=== PATIENT | male | born 1995 | race Caucasian/White ===

== ENCOUNTER 2024-01-07 20:29 | Emergency (ER) | payer OTHER, SELFPAY ==
[2024-01-07 20:42] VITALS: BP 121/91; PULSE 63; RESP 18; TEMP 36.7; O2SAT 99; BMI 21.9
--- NOTE | 2024-01-07 20:47 | ED.SKABFB ---
HPI - Skin/Abscess/Foreign Bdy General Chief complaint: General Medical Stated complaint: rash on hip and back Time Seen by Provider: 01/07/24 22:46 Source: patient Mode of arrival: ambulatory Limitations: no limitations History of Present Illness ED Provider: zohra HPI narrative: Patient has been having rash in the left flank area since 11/29 had a tick bite in 11/01 which was not engorged and patient has removed it but he do hiking and lot of outdoor activities initially the rash was very small gradually spreading seen in the PCP who prescribed prednisone last week patient is concerned about the Lyme. No fever no body aches no other symptoms patient has a only single lesion Related Data Previous Rx's ?Medication ?Instructions ?Recorded doxycycline hyclate 100 mg tablet 100 mg PO BID #42 tabs 01/07/24 Allergies Allergy/AdvReac Type Severity Reaction Status Date / Time No Known Allergies Allergy Verified 01/07/24 20:46 Review of Systems Review of Systems: Yes all other systems are reviewed and are negative PMFSH Social History Social History Smoked in Last 30 Days: No Use of substances other than those prescribed or required for medical reasons: No Advance Directives: No Advance Directives Information Provided: No Do you have a plan to hurt others: No Plan Physical Exam Vital Signs: Vital Signs: Last Vital Signs Temp 97.6 F 01/07/24 22:52 Pulse 62 01/07/24 22:52 Resp 17 01/07/24 22:52 BP 129/96 H 01/07/24 22:52 Pulse Ox 98 01/07/24 22:52 O2 Del Method Room Air 01/07/24 22:52 BMI result Body Mass Index 21.9 Appearance: Alert. Oriented X3. No acute distress. ENT: Pharynx normal. Oral Mucosa moist Neck: Normal inspection. Neck supple. CVS: Normal heart rate and rhythm. Pulses normal. Respiratory: No respiratory distress. Equal air entry bilateral, Abdomen: Soft and nontender. Skin: Skin warm and dry. 15 x 15 cm circular lesion on the left flank area with erythema at the margin and clearing at the center Course Course Course Narrative: This is a Rapid Medical Examination (RME) performed by Esvin Stallings PA-C in triage. Full HPI, ROS, assessment and treatment plan per primary provider in the Main ED. 28 yo male here for eval of rash to left hip x1 mo. seen by PCP 1 wk ago, prescribed prednisone. rash has worsened, now spreading to left back. tonight he recalled that he picked a tick off of him on 11/30/23. the rash began on 12/12/23. has not been tested for lyme or tick bourne illness. denies fatigue, muscle aches. PE: ?large erythematous target-like rash noted to left flank. no pustular lesions. no sloughing. Plan: basic labs, tick/lyme testing Medical Decision Making Medical Decision Making [facility] Narrative: Patient clinically erythema marginum rash after tick bite in 10/28 will prescribe doxycycline for 21 days although indicated only for 10 days but because patient has a rash for so long will treat for 21 days Lab Data [facility] Lab Attestation statement: I reviewed the patient's lab results. 01/07/24 20:55 01/07/24 20:55 Labs: Lab Results 01/07/24 Range/Units 20:55 WBC 6.1 (4.8-10.8) X10*3/uL RBC 4.51 L (4.60-5.80) X10*6/uL Hgb 13.4 L (14.0-18.0) g/dl Hct 39.5 L (42.0-52.0) % MCV 87.6 (80.0-98.0) fL MCH 29.7 (27.0-33.0) pg MCHC 33.9 (31.0-36.0) g/dl RDW 13.0 (11.0-16.0) % Plt Count 186 (160-400) X10*3/uL MPV 9.8 (9.4-12.4) fL Immature Gran % (Auto) 0.2 (0.0-0.4) % Neut % (Auto) 61.7 (45-73) % Lymph % (Auto) 29.3 (20-40) % Stephenson % (Auto) 7.8 (2-11) % Eos % (Auto) 0.5 (0-4) % Baso % (Auto) 0.5 (0-2) % Lymph # (Auto) 1.8 (1.2-4.9) X10*3/uL Stephenson # (Auto) 0.5 (0.1-1.2) X10*3/uL Eos # (Auto) 0.0 (0.0-0.4) X10*3/uL Baso # (Auto) 0.0 (0.0-0.2) X10*3/uL Abs Immat Gran (auto) 0.01 (0.00-0.03) X10*3/uL Absolute Neuts (auto) 3.7 (2.0-8.3) x10*3/uL Absolute Nucleated RBC 0.000 (0.0-0.012) X10*3/uL Nucleated RBC % (auto) 0.0 (0.0-0.2) /100WBC Sodium 139 (135-145) mmol/L Potassium 3.9 (3.3-5.1) mmol/L Chloride 103 (96-108) mmol/L Carbon Dioxide 26 (22-29) mmol/L Anion Gap 14 (12-20) BUN 24 H (9-16) mg/dL Creatinine 1.19 (0.5-1.4) mg/dL Estim Creat Clear Calc 88.8 Estimated GFR > 60 Random Glucose 95 (60-115) mg/dL Calcium 9.7 (8.4-10.2) mg/dL Total Bilirubin 0.4 (0.0-1.0) mg/dL AST 18 (5-37) U/L ALT 12 (0-40) U/L Alkaline Phosphatase 60 (39-117) U/L Total Protein 7.5 (6.5-8.0) g/dL Albumin 4.5 (3.5-5.0) g/dL Discharge Plan Discharge Clinical Impression: Erythema chronicum migrans Patient Disposition: Home, Self-Care Instructions: Lyme Disease (ED) Additional Instructions: You have rash from the tick bite Take antibiotics as prescribed for 21 days Follow up with PCP Prescriptions: New doxycycline hyclate 100 mg tablet 100 mg PO BID Qty: 42 0RF Print Language: Serbian
[2024-01-07 21:00] LABS: MANUAL DIFF FLAG NO
[2024-01-07 21:01] LABS: Basophils Percent Auto 0.5 % (0-2); Eosinophils Percent Auto 0.5 % (0-4); Hematocrit 39.5 % (42.0-52.0); Hemoglobin 13.4 g/dl (14.0-18.0); Imm Gran Abs Auto 0.01 X10*3/uL (0.00-0.03); Imm Gran Pct Auto 0.2 % (0.0-0.4); Lymphocytes Absolute Auto 1.8 X10*3/uL (1.2-4.9); Lymphocytes Percent Auto 29.3 % (20-40); Mean Corpuscular HGB Conc 33.9 g/dl (31.0-36.0); Mean Corpuscular Hemoglobin 29.7 pg (27.0-33.0); Mean Corpuscular Volume 87.6 fL (80.0-98.0); Mean Platelet Volume 9.8 fL (9.4-12.4); Monocytes Absolute Auto 0.5 X10*3/uL (0.1-1.2); Monocytes Percent Auto 7.8 % (2-11); Neutrophils Absolute Auto 3.7 x10*3/uL (2.0-8.3); Neutrophils Percent Auto 61.7 % (45-73); Platelet Count 186 X10*3/uL (160-400); Red Blood Count 4.51 X10*6/uL (4.60-5.80); White Blood Count 6.1 X10*3/uL (4.8-10.8)
[2024-01-07 21:17] LABS: Alanine Aminotransferase 12 U/L (0-40); Albumin Level 4.5 g/dL (3.5-5.0); Alkaline Phosphatase 60 U/L (39-117); Anion Gap 14 (12-20); Aspartate Amino Transferase 18 U/L (5-37); Bilirubin Total 0.4 mg/dL (0.0-1.0); Blood Urea Nitrogen 24 mg/dL (9-16); Calcium 9.7 mg/dL (8.4-10.2); Carbon Dioxide 26 mmol/L (22-29); Chloride 103 mmol/L (96-108); Creatinine Clr Calc Pharmacy 88.8; Estimated Glomerular Filt Rate > 60; Glucose Random 95 mg/dL (60-115); Potassium 3.9 mmol/L (3.3-5.1); Sodium 139 mmol/L (135-145); Total Protein 7.5 g/dL (6.5-8.0)
--- NOTE | 2024-01-07 22:19 | PC.NURSE ---
pt from lobby, assume care of pt at this time
[2024-01-07 22:52] VITALS: BP 129/96; PULSE 62; RESP 17; TEMP 36.4; O2SAT 98
[2024-01-07] MEDS: Doxycycline Monohydrate 100 MG CAPSULE PO (23:14)
[2024-01-07 23:16] VITALS: BP 129/96; PULSE 62; RESP 17; TEMP 36.4; O2SAT 98
[2024-01-09 14:43] LABS: Lyme Blot 2.24 index
[2024-01-10 02:54] LABS: A. Phagocytphilium DNA,RT-PCR NOT DETECTED (NOT DETECTED); Babesia Microti DNA, RT-PCR NOT DETECTED (NOT DETECTED); Borrelia Miyamotoi,DNA RT-PCR NOT DETECTED (NOT DETECTED); E.Chaffeensis DNA RT-PCR NOT DETECTED (NOT DETECTED); Lyme(Borrelia ssp)DNA RT-PCR NOT DETECTED (NOT DETECTED)
[2024-01-10 10:51] LABS: Lyme Abs Screen POSITIVE
[2024-01-10 20:33] LABS: 18 KD (IgG) Band NON-REACTIVE; 23 KD (IgG) Band NON-REACTIVE; 23 KD (IgM) Band REACTIVE; 28 KD (IgG) Band NON-REACTIVE; 30 KD (IgG) Band NON-REACTIVE; 39 KD (IgM) Band REACTIVE; 39KD (IgG) Band NON-REACTIVE; 41 KD (IgM) Band NON-REACTIVE; 41KD (IgG) Band REACTIVE; 45 KD (IgG) Band NON-REACTIVE; 58 KD (IgG) Band NON-REACTIVE; 66 KD (IgG) Band NON-REACTIVE; 93 KD (IgG) Band NON-REACTIVE; Lyme IgG Blot Interp NEGATIVE (NEGATIVE); Lyme IgM Blot Interp POSITIVE (NEGATIVE)
== END 2024-01-07 23:17 | disposition home or self-care (01) ==
PROVIDERS: Physician Assistant Medical; Emergency Provider Internal Medicine; PCP Student in an Organized Health Care Education/Training Program
DX: A69.20 Lyme disease, unspecified (principal); R21 Rash and other nonspecific skin eruption
CPT/HCPCS: 36415; 80053; 85025; 86617; 86618; 87468; 87469; 87478; 87484; 87798; 99283; 99284

== ENCOUNTER 2024-11-27 07:22 | Outpatient (AMB) | payer OTHER, SELFPAY ==
--- OUTSIDE RECORDS SUMMARY | 2024-11-27 07:24 | XMS_ITS | Clinical Summary ---
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 Role Phone Unavailable Primary Care Provider Unavailabl e Social History Tobacco Use Types Packs/Day Years Used Date Smoking Tobacco: Never Assessed Sex and Gender Information Value Date Recorded Sex Assigned at Not on file Legal Sex Male 7:04 PM EST Gender Identity Not on file Sexual Orientation Not on file Plan of Treatment Health Maintenance Due Date Last Done Comments DTaP,Tdap,and Td Vaccines (1 - Tdap) 2012 Hepatitis B Vaccines (1 of 3 - 19+ 3-dose series) 2012 HIV Screening 04/08/2022 Hepatitis C Screening 04/08/2022 Social Influencers of Health Screening 04/08/2022 COVID-19 Vaccine (1 - 2023-2 5 season) 2024 Depression Screening 05/07/2024 Influenza Vaccine (#1) 2025 HIB Vaccines Aged Out No longer eligi ble based on patient's age to complete this topic HPV Vaccines Aged Out No longer eligi ble based on patient's age to complete this topic Hepatitis A Vaccines Aged Out No long er eligible based on patient's age to complete this topic IPV Vaccines Aged Out No longer eligi ble based on patient's age to complete this topic MMR Vaccines Aged Out No longer eligi ble based on patient's age to complete this topic Meningococcal ACWY Vaccine Aged Out N o longer eligible based on patient's age to complete this topic Meningococcal B Vaccine Aged Out No l onger eligible based on patient's age to complete this topic Pneumococcal Vaccine: Pediat rics (0 to 5 Years) and At-Risk Patients (6 to 49 Years) Aged Out No longer eligible b ased on patient's age to complete this topic RSV Immunization Patients Un charlie 20 months Aged Out No longer eligible b ased on patient's age to complete this topic Varicella Vaccines Aged Out No longer eligible based on patient's age to complete this topic
--- OUTSIDE RECORDS SUMMARY | 2024-11-27 07:24 | XMS_ITS | Data Portability ---
Author Organization [facility], Main Office Address [address] [facility] [address] [place] [id number] Care Team Providers Care Art Handler Name Role Phone CHRISTINE PARKS Primary Care Provider Assessment Encounter Date Assessment Date Assessment LastModified by Organization Details LastModified Time 08/15/2024 08/15/2024 Please note for complaints of possible gluten sensitivty patient was advised to see intergrated medicine. Declined testing specially for celiac disease as low likely-anthony of this. Not available 08/15/2024 09:09:59 Plan of Treatment Reminders Order Date Submit Date Provider Last Modified By Organization Details Last Modified Time Details Appointments None recorded. Lab lipid panel, serum 2024 025 [facility], [address] [place], [address], 5 06:17:59 strep group A, DNA, swab 2023 024 [email or web address] In-Office Order, Internal Use Only DO Not Attach Compendium DO Not Attach Compendium, Do Not Delete/merge, [id number] 4 09:53:59 strep group A, DNA, swab 2023 024 [email or web address] In-Office Order, Internal Use Only DO Not Attach Compendium DO Not Attach Compendium, Do Not Delete/merge, [id number] 4 15:23:15 lipid panel, serum 2023 024 [facility], [address] [place], [address], 4 06:08:14 CBC w/ auto diff 2023 024 [facility], [address] [place], [address], 4 06:08:12 BMP, serum or plasma 2023 024 [facility], [address], [place], [address], 4 06:08:13 TSH, ultra-sensi tive, serum 2023 024 [facility], [address], [place], [address], 4 06:08:15 Hepatitis C IgG Ab, qual, serum 2023 024 [facility], [address] [place], [address], 4 06:08:14 Referral None recorded. Procedures None recorded. Surgeries None recorded. Imaging None recorded. Medication Orders sumatriptan 25 mg tablet 2023 024 [id number], [address] [place], [address], 5 05:02:18 Patient TargetsNo targets recorded. Patient Instructions Encounter Date Encounter Id Patient Instructions Last Modified By Organization Details Last Modified Time 07/16/2023 [id number] raynaud's phenomenon: care instructions Not available 07/16/2023 09:22:37 Well Visit, Ages 18 to 65: Care Instructions Not available 07/16/2023 09:22:36 04/15/2024 [id number] saline nasal washes: care instructions pmadden Not available 04/15/2024 09:58:52 sore throat: car e instructions pmadden Not available 04/15/2024 09:58:52 Follow up if no improvement or if symptoms worsen. pmadden Not available 04/15/2024 09:42:19 08/15/2024 [id number] raynaud's phenomenon: care instructions Not available 08/15/2024 09:04:13 high cholesterol : care instructions Not available 08/15/2024 09:04:13 Reason for Referral None Reported. Results Created Date Observation Date Name Description Value Unit Range Abnormal Flag Note LastModifiedBy Organization Detail LastModifiedTime 07/16/1907/17/2023 CBC WITH DIFFE RENTI AL/PL ATELE T WBC 4.3 x10e3 /uL 3.4-10 .8 Not Available [facility] ([facility]) [address] [facility], [place], [address], 07/17/2023 06:08:12 07/16/19 24 07/17/2023 CBC WITH DIFFE RENTI AL/PL ATELE T RBC 5.03 x10e6 /uL 4.14-5 .80 Not Available [facility] ([facility]) [address] [facility], [place], [address], 07/17/2023 06:08:12 07/16/19 24 07/17/2023 CBC WITH DIFFE RENTI AL/PL ATELE T hemoglobin 14.7 g/dL 13.0-1 7.7 Not Available [facility] ([facility]) [address] [facility], [place], [address], 07/17/2023 06:08:12 07/16/1907/17/2023 CBC WITH DIFFE RENTI AL/PL ATELE T hematocrit 43.4 % 37.5-5 1.0 Not Available [facility] ([facility]) [address] [place], [address], 07/17/2023 06:08:12 07/16/19 24 07/17/2023 CBC WITH DIFFE RENTI AL/PL ATELE T MCV 86 fL 79-97 Not Available [facility] ([facility]) [address] [place], [address], 07/17/2023 06:08:12 07/16/19 24 07/17/2023 CBC WITH DIFFE RENTI AL/PL ATELE T MCH 29.2 pg 26.6-3 3.0 Not Available [facility] ([facility]) [address] [facility], [place], [address], 07/17/2023 06:08:12 07/16/19 24 07/17/2023 CBC WITH DIFFE RENTI AL/PL ATELE T MCHC 33.9 g/dL 31.5-3 5.7 Not Available [facility] ([facility]) [address] [facility], [place], [address], 07/17/2023 06:08:12 07/16/19 24 07/17/2023 CBC WITH DIFFE RENTI AL/PL ATELE T RDW 12.3 % 11.6-1 5.4 Not Available [facility] ([facility]) [address] [facility], [place], [address], 07/17/2023 06:08:12 07/16/19 24 07/17/2023 CBC WITH DIFFE RENTI AL/PL ATELE T platelets 189 x10e3 /uL 150-45 0 Not Available [facility] ([facility]) [address] [facility], [place], [address], 07/17/2023 06:08:12 07/16/19 24 07/17/2023 CBC WITH DIFFE RENTI AL/PL ATELE T neutrophils 54 % not estab. Not Available [facility] ([facility]) [address] [facility], [place], [address], 07/17/2023 06:08:12 07/16/19 24 07/17/2023 CBC WITH DIFFE RENTI AL/PL ATELE T lymphs 32 % not estab. Not Available [facility] ([facility]) [address] [place], [address], 07/17/2023 06:08:12 07/16/19 24 07/17/2023 CBC WITH DIFFE RENTI AL/PL ATELE T monocytes 12 % not estab. Not Available [facility] ([facility]) [address] [facility], [place], [address], 07/17/2023 06:08:12 07/16/19 24 07/17/2023 CBC WITH DIFFE RENTI AL/PL ATELE T eos 1 % not estab. Not Available [facility] ([facility]) [address] [facility], [place], [address], 07/17/2023 06:08:12 07/16/19 24 07/17/2023 CBC WITH DIFFE RENTI AL/PL ATELE T basos 1 % not estab. Not Available [facility] ([facility]) [address] [facility], [place], [address], 07/17/2023 06:08:12 07/16/19 24 07/17/2023 CBC WITH DIFFE RENTI AL/PL ATELE T immature cells GAS GOLF CART REPAIRER Not Available [facility] ([facility]) [address] [facility], [place], [address], 07/17/2023 06:08:12 07/16/19 24 07/17/2023 CBC WITH DIFFE RENTI AL/PL ATELE T neutrophils (absolute) 2.3 x10e3 /uL 1.4-7. 0 Not Available [facility] ([facility]) [address] [facility], [place], [address], 07/17/2023 06:08:12 07/16/19 24 07/17/2023 CBC WITH DIFFE RENTI AL/PL ATELE T lymphs (absolute) 1.4 x10e3 /uL 0.7-3. 1 Not Available [facility] ([facility]) [address] [facility], [place], [address], 07/17/2023 06:08:12 07/16/19 24 07/17/2023 CBC WITH DIFFE RENTI AL/PL ATELE T monocytes(ab solute) 0.5 x10e3 /uL 0.1-0. 9 Not Available [facility] ([facility]) [address] [facility], [place], [address], 07/17/2023 06:08:12 07/16/19 24 07/17/2023 CBC WITH DIFFE RENTI AL/PL ATELE T eos (absolute) 0.1 x10e3 /uL 0.0-0. 4 Not Available [facility] ([facility]) [address] [facility], [place], [address], 07/17/2023 06:08:12 07/16/19 24 07/17/2023 CBC WITH DIFFE RENTI AL/PL ATELE T baso (absolute) 0.0 x10e3 /uL 0.0-0. 2 Not Available [facility] ([facility]) [address] [facility], [place], [address], 07/17/2023 06:08:12 07/16/19 24 07/17/2023 CBC WITH DIFFE RENTI AL/PL ATELE T immature granulocytes 0 % not estab. Not Available [facility] ([facility]) [address] [facility], [place], [address], 07/17/2023 06:08:12 07/16/19 24 07/17/2023 CBC WITH DIFFE RENTI AL/PL ATELE T immature grans (abs) 0.0 x10e3 /uL 0.0-0. 1 Not Available [facility] ([facility]) [address] [facility], [place], [address], 07/17/2023 06:08:12 07/16/19 24 07/17/2023 CBC WITH DIFFE RENTI AL/PL ATELE T NRBC GAS GOLF CART REPAIRER Not Available [facility] ([facility]) [address] [facility], [place], [address], 07/17/2023 06:08:12 07/16/19 24 07/17/2023 CBC WITH DIFFE COMFORT AL/PL TRUDY De La Fuente hematology comments: GAS GOLF CART REPAIRER Not Available [facility] ([facility]) [address] [place], [address], 07/17/2023 06:08:12 07/16/19 24 07/17/2023 BASIC METAB OLIC PANEL (8) glucose 85 mg/dL 70-99 Not Available [facility] ([facility]) [address] [place], [address], 07/17/2023 06:08:13 07/16/19 24 07/17/2023 BASIC METAB OLIC PANEL (8) BUN 19 mg/dL 6-20 Not Available [facility] ([facility]) [address] [place], [address], 07/17/2023 06:08:13 07/16/19 24 07/17/2023 BASIC METAB OLIC PANEL (8) creatinine 1.19 mg/dL 0.76-1 .27 Not Available [facility] ([facility]) [address] [place], [address], 07/17/2023 06:08:13 07/16/19 24 07/17/2023 BASIC METAB OLIC PANEL (8) eGFR 84 mL/mi n/1.7 3 >59 Not Available [facility] ([facility]) [address] [place], [address], 07/17/2023 06:08:13 07/16/19 24 07/17/2023 BASIC METAB OLIC PANEL (8) BUN/creatini ne ratio 16 9-20 Not Available [facility] ([facility]) [address] [place], [address], 07/17/2023 06:08:13 07/16/19 24 07/17/2023 BASIC METAB OLIC PANEL (8) sodium 143 mmol/ L 134-14 4 Not Available [facility] ([facility]) [address] [place], [address], 07/17/2023 06:08:13 07/16/19 24 07/17/2023 BASIC METAB OLIC PANEL (8) potassium 4.6 mmol/ L 3.5-5. 2 Not Available [facility] ([facility]) [address] [place], [address], 07/17/2023 06:08:13 07/16/19 24 07/17/2023 BASIC METAB OLIC PANEL (8) chloride 102 mmol/ L 96-106 Not Available [facility] ([facility]) [address] [place], [address], 07/17/2023 06:08:13 07/16/19 24 07/17/2023 BASIC METAB OLIC PANEL (8) carbon dioxide, total 24 mmol/ L 20-29 Not Available [facility] ([facility]) [address] [place], [address], 07/17/2023 06:08:13 07/16/19 24 07/17/2023 BASIC METAB OLIC PANEL (8) calcium 9.9 mg/dL 8.7-10 .2 Not Available [facility] ([facility]) [address] [place], [address], 07/17/2023 06:08:13 07/16/19 24 07/17/2023 LIPID PANEL cholesterol, total 225 mg/dL 100-19 9 above high normal Not Available [facility] ([facility]) [address] [place], [address], 07/17/2023 06:08:14 07/16/19 24 07/17/2023 LIPID PANEL triglyceride s 68 mg/dL 0-149 Not Available [facility] ([facility]) [address] [place], [address], 07/17/2023 06:08:14 07/16/19 24 07/17/2023 LIPID PANEL HDL cholesterol 78 mg/dL >39 Not Available [facility]) [address] [facility], [place], [address], 07/17/2023 06:08:14 07/16/19 24 07/17/2023 LIPID PANEL VLDL cholesterol porter 12 mg/dL 5-40 Not Available [facility] ([facility]) [address] [facility], [place], [address], 07/17/2023 06:08:14 07/16/19 24 07/17/2023 LIPID PANEL LDL chol calc ([facility]) 135 mg/dL 0-99 above high normal Not Available [facility] ([facility]) [address] [facility], [place], [address], 07/17/2023 06:08:14 07/16/19 24 07/17/2023 LIPID PANEL comment: GAS GOLF CART REPAIRER Not Available [facility] ([facility]) [address] [facility], [place], [address], 07/17/2023 06:08:14 07/16/19 24 07/17/2023 HCV ANTIB YESY RFX TO QUANT PCR HCV Ab Non Reacti ve non reacti ve Not Available [facility] ([facility]) [address] [facility], [place], [address], 07/17/2023 06:08:14 07/16/19 24 07/17/2023 HCV ANTIB YESY RFX TO QUANT PCR interpretati on: Commen t Not infec nery with HCV unles s early or acute infec tion is suspe cted (whic h may be delay ed in an immun ocomp romis ed indiv idual ), or other evide nce exist s to indic ate HCV infec tion. Not Available [facility] ([facility]) [address] [facility], [place], [address], 07/17/2023 06:08:14 07/16/19 24 07/17/2023 TSH RFX ON ABNOR MAL TO FREE T4 TSH 3.710 uIU/m L 0.450- 4.500 Not Available [facility] ([facility]) [address] [place], [address], 07/17/2023 06:08:15 10/10/19 24 10/10/2023 strep group A, DNA, swab ID NOW Strep A 2 (rapid molecular test) negati ve Not Available In-Office Order Internal Use Only DO Not Attach Compendium DO Not Attach Compendium, Do Not Delete/merge, [id number] 10/10/2023 13:43:55 04/15/20 24 04/15/2024 strep group A, DNA, swab ID NOW Strep A 2 (rapid molecular test) negati ve Not Available In-Office Order Internal Use Only DO Not Attach Compendium DO Not Attach Compendium, Do Not Delete/merge, [id number] 04/15/2024 09:28:45 08/21/19 25 08/21/2024 LIPID PANEL cholesterol, total 214 mg/dL 100-19 9 above high normal Not Available [facility] ([facility]) [address] [place], [address], 08/21/2024 06:17:59 08/21/19 25 08/21/2024 LIPID PANEL triglyceride s 44 mg/dL 0-149 normal Not Available [facility] ([facility]) [address] [place], [address], 08/21/2024 06:17:59 08/21/19 25 08/21/2024 LIPID PANEL HDL cholesterol 69 mg/dL >39 normal Not Available [facility]) [address] [place], [address], 08/21/2024 06:17:59 08/21/19 25 08/21/2024 LIPID PANEL VLDL cholesterol porter 8 mg/dL 5-40 Not Available [facility] ([facility]) [address] [place], [address], 08/21/2024 06:17:59 08/21/19 25 08/21/2024 LIPID PANEL LDL chol calc ([facility]) 137 mg/dL 0-99 above high normal Not Available [facility] ([facility]) [address] [facility], [place], [address], 08/21/2024 06:17:59 08/21/19 25 08/21/2024 LIPID PANEL LDL calc comment: GAS GOLF CART REPAIRER Not Available [facility] ([facility]) [address] [facility], [place], [address], 08/21/2024 06:17:59 Result Notes None recorded. Problems Name Problem SNOMED Code Status Onset Date Resolution Date Notes Provider Name and Address Organization Details Recorded Time Raynaud' s disease 718035771 Active was previousl ynseen by rheum CHRISTINE PARKS MD [address] [address], [place], [address], [facility] 4 09:06:45 Migraine 99415441 Active 2023 CHRISTINE PARKS MD [address] [address], [place], [address], [facility] 4 09:06:15 Hyperlip idemia 51411967 Active 2023 CHRISTINE PARKS MD [address] [facility] [address], [place], [address], [facility] 4 07:34:08 Acute pharyngi tis 299231264 Completed 202312/27/2023 CHRISTINE PARKS MD [address] [facility] [address], [place], [address], [facility] 4 14:13:27 History of Lyme disease 135611448 Active 2024 CHRISTINE PARKS MD [address] [address], [place], [address], [facility] 5 09:07:56 Problem Notes None recorded. Medical Equipment None Reported. Allergies No known drug allergies Medications Name Sig Start Date Stop Date Status Note LastModified by Organization Details LastModified Time fluconazole 100 mg tablet TAKE 1 TABLET ORALLY DAILY 04/15 completed Not Available Not Available Not Available sumatriptan 25 mg tablet Take 1 tablet every 8 hours by oral route as needed for 5 days. 09/09 completed Not Available Not Available Not Available doxycycline monohydrate 100 mg capsule TAKE 1 CAPSULE BY MOUTH TWICE DAILY 07/15 completed Not Available Not Available Not Available methylpredn isolone 4 mg tablets in a dose pack TAKE DIRECTED ON TABLET CARD 04/15 completed Not Available Not Available Not Available fluticasone propionate 50 mcg/actuati on nasal spray,suspe nsion SPRAY 2 SPRAYS IN EACH NOSTRIL ONCE DAILY. 07/15 completed Not Available Not Available Not Available doxycycline hyclate 100 mg tablet TAKE ONE TABLET BY MOUTH TWICE A DAY 04/15 completed Not Available Not Available Not Available Vitals Date Recorded Body height Body mass index (BMI) Body weight Oxygen saturation Oxygen saturation in Arterial blood by Pulse oximetry Heart rate Body temperature Systolic And Diastolic Provider Name and Address Organization Details Last Updated DateTime 4 177.8 cm 21.6 kg/m2 50661.9 6 g 99 % 99 % 68 /min 97.9 [degF] 104/66 mm[Hg] [facility] 4 08:59:10 Date Recorded Body height Body mass index (BMI) Body weight Heart rate Oxygen saturation Oxygen saturation in Arterial blood by Pulse oximetry Body temperature Systolic And Diastolic Provider Name and Address Organization Details Last Updated DateTime 5 177.8 cm 21.9 kg/m2 00775.8 4 g 61 /min 100 % 100 % 97.8 [degF] 104/72 mm[Hg] Janay Cotter MA [facility] 5 08:50:11 Date Recorded Body height Body mass index (BMI) Body weight Heart rate Oxygen saturation Oxygen saturation in Arterial blood by Pulse oximetry Body temperature Systolic And Diastolic Provider Name and Address Organization Details Last Updated DateTime 4 177.8 cm 21.5 kg/m2 83756.8 6 g 84 /min 98 % 98 % 98.6 [degF] 116/77 mm[Hg] Janay Cotter MA [facility] 4 13:43:30 Date Recorded Body height Body mass index (BMI) Body weight Oxygen saturation Oxygen saturation in Arterial blood by Pulse oximetry Heart rate Body temperature Systolic And Diastolic Provider Name and Address Organization Details Last Updated DateTime 4 177.8 cm 22 kg/m2 43599.6 3 g 98 % 98 % 71 /min 98.1 [degF] 106/70 mm[Hg] Sanam Alicea MA [facility] 4 13:44:47 Date Recorded Body height Body mass index (BMI) Body weight Heart rate Oxygen saturation Oxygen saturation in Arterial blood by Pulse oximetry Body temperature Systolic And Diastolic Provider Name and Address Organization Details Last Updated DateTime 4 177.8 cm 22.2 kg/m2 42497.8 2 g 65 /min 100 % 100 % 98.1 [degF] 112/68 mm[Hg] Tina Zuniga LPN [facility] 4 09:27:14 Social History Question Answer Notes LastModified by Organizat ion Details LastModified Time Tobacco Smoking Status Never Smoker [facility], [facility] 07/16/2023 09:01:00 Do You Have An Advance Directive? No Information not available 07/16/2023 Is Blood Transfusion Acceptable In An Emergency? Yes [email or web address] Information not available 07/16/2023 What Type Of Diet Are You Following? REGULAR [email or web address] Information not available 07/16/2023 Do You Take Precautions To Prevent Distracted Driving? Yes [email or web address] Information not available 07/16/2023 How Often Do You Need To Have Someone Help You When You Read Instructions, Pamphlets, Or Other Written Material From Your Doctor Or Pharmacy? Sometimes Information not available 07/16/2023 Have You Served In The ? No [email or web address] Information not available 07/16/2023 How Many Children Do You Have? 2 [email or web address] Information not available 07/16/2023 Are You Passively Exposed To Smoke? No [email or web address] Information not available 07/16/2023 Sex: Unknown Functional Status Question Answer Note LastModified by Organizat ion Details LastModified Time Do you use any illicit or recreational drugs? No [email or web address] Information not available 07/16/2023 Do you or have you ever used any other forms of tobacco or nicotine? No [email or web address] Information not available 07/16/2023 What is your level of alcohol consumption? Occasional rare Information not available 07/16/2023 Are you currently employed? Yes [email or web address] Information not available 07/16/2023 Are you able to walk? 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 Moderate Information not available 07/16/2023 Mental Status None recorded. Family History Relationship Description Onset Age of this Age Resolved Age Notes LastModified by Organization Details LastModified Time Father Essential hypertension Not available 10:44:38 Father Type 2 diabetes mellitus Not available 07/14 10:44:56 Father Coronary arterioscler osis Not available 07/14 10:45:05 Father Hypercholest erolemia Not available 07/14 10:45:16 Mother Arthritis Not availa ble 07/16/2023 09:09:42 Mother Insomnia Not availab le 07/16/2023 09:09:48 Medical History No medical history recorded. Immunizations Vaccine Type Date Status Note Provider Nam e and Address Organization Details Recorded Time COVID-19, mRNA, LNP-S, PF, 100 mcg/0.5mL dose or 50 mcg/0.25mL dose 07/17/2020 completed [facility] G[facility] 07/16/2023 08:59:34 COVID-19, mRNA, LNP-S, PF, 100 mcg/0.5mL dose or 50 mcg/0.25mL dose 08/14/2020 completed [facility] 07/16/2023 08:59:34 COVID-19, mRNA, LNP-S, PF, 100 mcg/0.5mL dose or 50 mcg/0.25mL dose 05/03/2021 completed [facility] Gale [place] [facility] 07/16/2023 08:59:34 Past Encounters Encounter ID Performer Location Encounter Start Date Encounter Closed Date Diagnosis/Indication Diagnosis SNOMED-CT Code Diagnosis ICD10 Code Diagnosis Note [id number] CHRISTINE PARKS MD Main Office [address] [facility] [address] [facility] [place] [phone] 07/16/2023 08:51:06 07/16/2023 09:26:35 Adult health examination 202131917 Z00.00 Health Maintenanc e [place]) Patient was counseled on healthy diet, exercise and nutrition due to BMI of 21.6 B) Screening: Last PSADate: Result: ???Next: not yet of age Last Colonoscop y: start at age 45-65Date: Result: Next: not yet of age C) Vaccines:I nfluenza: refusedTdA P: does not rememberZo ster: due at 32FCV84: due at 62YHLR31: due at 08MNW73:PC V15:COVID: 05/03/2021 , 08/14/2020 , 05/03/2021 D) Routine blood work orderedE) Updated patient's history RTC in one year for annual exam or sooner if any acute complaints Fatigue 10717511 R53.83 Z00.00 Hyperlipidemia 80209982 E78.5 Z00.00 Hepatitis C screening 39 7230522 Z11.59 Patient ne w to provider [id number] 01610 Z76.89 - reviewed previous PCP notes Migraine 65917250 G43.90 9 - occurs once a month- pt does not take any OTC medication - does have relief when goes to urgent care for toradol- ordered patient sumatripta n 25mg to be taken as needed- counselled to keep a migraine diary Raynaud's disease 038360 006 I73.01 - was previously seen by rhematolog y and was on a CCB however it did not provide much relief for patient- pt does not want any medication for this, wants to continue supportive therapy Requires a tetanus booster 834646246 Z28.39 [id number] Baljinder Peralta MD Main Office [address] [address] [place] [address] 10/10/2023 13:32:49 10/10/2023 14:02:56 Acute pharyngitis 048041471 J02.9 Presenting with classic viral URI presentati on with possible associated viral gastroente ritis. He has felt improved today. Rapid strep test was negative. Currently, there is no evidence of any focal bacterial infection that would warrant further testing or treatment with antibiotic s. No evidence of strep pharyngiti s, OM, bacterial sinusitis, pneumonia, meningitis . Doubt mononucleo sis given no known sick contacts, improvemen t of symptoms after several days. He was advised to keep using Tylenol and/or ibuprofen at home for fevers and to drink plenty of fluids. He was advised to call our office for any changing, worsening, or concerning symptoms. [id number] CHRISTINE PARKS MD Main Office [address] [place] [address] 12/27/2023 13:33:09 12/27/2023 13:56:01 Migraine 64384851 G43.909 - occurs once a month- pt does not take any OTC medication - does have relief when goes to urgent care for toradol- c/w sumatripta n 25mg to be taken as needed as it is providing relief- counselled to keep a migraine diary Urticaria 374682670 L50. 9 - no rash noted on exam today however picture from 12/11 pt appeared to have a urticarial rash- pt advised to take luke warm showers as the very hot showers could be aggravatin g the skin- if worsening advised to take zyrtec 10mg QD- can use benadryl cream or hydorcorti sone cream [id number] Baljinder Peralta MD Main Office [address] [place] [address] 04/15/2024 09:16:25 04/15/2024 09:55:25 Acute pharyngitis 713101670 J02.9 likely d/t pnd / viral uri as rapid strep was negative and no white pur dc (exudate) noted on tonsilsrec SW gargles Congestion of nasal sinus [id number] R09.81 rec ns spray often Onychomycosis [id number] B35.1 mild on right index finger - trial c fungi-nail [id number] CHRISTINE PARKS MD Main Office [address] [facility] [address] [facility] [place] [phone] 08/15/2024 08:40:38 08/15/2024 09:08:04 Hyperlipidemia [id number] E78.5 Z00.00 - lipid panel 07/2023: cholestero l-225, triglyceri nataliia-68, HDL-78, LDL-135 Pt counselled on:- Eat a heart-heal thy diet - Choose healthy fats. Avoid saturated fats that are found primarily in red meat, bell, sausage, and full-fat dairy products. Advised to choose lean proteins like chicken, turkey, and fish when possible. Switch to low-fat or fat-free dairy. And use monounsatu rated fats like olive and canola oil for cooking. - Cut out the trans fats. Trans fats are found in fried food and processed foods, like cookies, crackers, and other snacks. - Eat more omega-3s. Counseled on eating more fish, including salmon, mackerel, salazar ,nuts and seeds, like walnuts and flax seeds. - Increase your fiber intake. By eating more oats, brain, fruits, beans, and vegetables , can lower your LDL cholestero l levels. - Eat more fruits and veggies. Migraine [id number] G43.90 9 - occurs once a month- pt does not take any OTC medication - does have relief when goes to urgent care for toradol- c/w sumatripta n 25mg to be taken as needed as it is providing relief- counselled to keep a migraine diary Raynaud's disease [id number] 006 I73.01 - will have blue-laila discolorat ion- was previously seen by rhematolog y and was on a CCB however it did not provide much relief for patient- pt does not want any medication for this, wants to continue supportive therapy Adult [facility] examination [id number] Z00.00 Health Maintenanc e [place]) Patient was counseled on healthy diet, exercise and nutrition due to BMI of 21.9 B) Screening: Last PSADate: Result: ???Next: not yet of age Last Colonoscop y: start at age 45-65Date: Result: Next: not yet of age C) Vaccines:I nfluenza: refusedTdA P: ordered, not performed, remindedZo ster: due at 68RNP18: due at 56HWWW55: due at 39REX83:PC V15:COVID: 05/03/2021 , 08/14/2020 , 05/03/2021 D) Routine blood work orderedE) Updated patient's history RTC in one year for annual exam or sooner if any acute complaints Health Concerns Section Related Observation LastModified by Organization Detai ls LastModified Time None Recorded Concern Status LastModified by Organization Details LastModified Time None Recorded Advance Directives Directive N: Payers Insurance Date Sequence Insurance Name Policy Number Policy Chavarria Covered Member ID Chavarria Member ID Guarantor Name 08/15/2024 1 [facility] [place] Wilder Gutierrez [id number] Wilder Gutierrez 08/26/2024 1 [facility] [id number] Wilder Gutierrez [id number] Wilder Gutierrez Notes Date Note Type Note Provider Name and Address Organization Details Recorded Time 4 text/html HeadacheReported by PatientHPIFor location, [facility] For quality, patient reportsnot the worst headache ever. For severity, patient reportssevere. For duration, patient reportsintermittent. For onset/timing, patient reportsabrupt onset(with a change from normal activity like an event or travel). For context, patient reportsnot related to trauma,stress at work, andpoor sleep. For aggravating factors, (lights, will see stairs).Pt will get a headache once a month. Generic HPI TemplateReported by Patient Wilder Gutierrez is a 28 year old M who presents to the clinic to establish care. Patient was last seen by PCP was one year ago. Patient had one panic attack this year which he has never had before. Complaints: pt mentions he goes to urgent care for migraines and will get toradol shots which makes him feel better Is not using ASA.OTC/Herbal supplements use: none Sex hx: with wifePt has two childrenSTI: noneDrug use: neverEtoh use: once a monthtobacco use: neverspf/derm: does not use Dental: every 6 monthsEye: does not see, having a eye twitch (pt does not sleep well and only sleep for few hours)Diet: regularActivity: 3-4X a week (has a hop strainer and a class), mixture of cardio and weights CHRISTINE PARKS MD [address], [phone], [facility] 07/16/2023 09:37:40 4 text/html Throat PainReported by PatientBegan feeling a sore throat 3-4 days ago, then having generalized body aches, with generalized abdominal pain beginning 1-2 days ago. He has had chills and subjective fevers warm though none measured. Has mild sinus pressure but no nasal discharge or nasal congestion. Had x2-3 episodes of diarrhea yesterday without gross blood or melena. No ear pain/pressure. No vision change, eye redness, drainage. No nausea/vomiting, constipation, penile discharge, or other complaints. Has been using Tylenol with some relief. No known sick contacts. No recent travel. Performed a home COVID test today which was negative.ROS as noted in the HPI Donna Elmore PA-C [address], [phone], [facility] 10/10/2023 15:23:30 4 text/html Skin LesionReported by PatientHPIFor associated symptoms, patient reportslesions spreadingbut reportsno fever,no cold symptoms,no nausea,no vomiting,no diarrhea,no urinary symptoms,no skin flakes,no scabbing,no bruising,no draining, andno lesions multiplying. For quality, patient reportsitchy. For severity, patient reportsmild. For duration, patient reportsstarted 1 month(s) ago. For onset/timing, patient reportsabrupt. For context, patient reportsno known trigger. For location, (left hip).ROS as noted in the HPI Wilder Gutierrez is a 28 year old M who was seen in the clinic for a rash on the left side of his hip. Pt mentions this has been present for one month and he is unsure of how he got the rash. It was previously raised and spreading however not flat. The area will get intermittently red with itching after taking a shower. Pt did not use any OTC medications. Pt did go hiking in [place] and rash did appear afterwards however cannot confirm is got any bites or exposed to something during the trip or afterwards. Denies any bleeding or discharge. CHRISTINE PARKS MD [address] [address], [place], [phone], [facility] 12/27/2023 14:14:21 4 text/html Throat PainReported by Patient sore throat and congestion - looking for strep testing - he's going away on business tonightpt tested neg for covid and will wear mask acute onset yesterday of STno cough, f/c states has chronic nasal congestion - but worse past 2 daysno otc remedies Renato Elmore PA-C [address] [facility] [address], [place], [phone], [facility] 04/15/2024 10:00:42 5 text/html HeadacheReported by PatientHPIFor location, patient reportsb[facility]and[facility]u.[facility]. [facility]. For quality, patient reportsnot the worst headache ever. For severity, patient reportssevere. For duration, patient reportsintermittent. For onset/timing, patient reportsabrupt onset(with a change from normal activity like an event or travel). For context, patient reportsnot related to trauma,stress at work, andpoor sleep. For aggravating factors, (lights, will see stairs).Pt will get a headache about once a month. Generic HPI TemplateReported by Patient Wilder Gutierrez is a 29 year old M who presents to the clinic for his annual exam. Complaints:> feels like has glucose and lactose sensitivity> pt mentions he goes to urgent care for migraines and will get toradol shots which makes him feel better -> has not been in several months Is not using ASA.OTC/Herbal supplements use: none Sex hx: with wifePt has two childrenSTI: noneDrug use: neverEtoh use: once a monthtobacco use: neverspf/derm: does not use Dental: every 6 monthsEye: does not seeDiet: regular -> cut down on dairy and eggsActivity: 4-5X a week (has a hop strainer and a class), mixture of cardio and weights for about 50 mins CHRISTINE PARKS MD [address] [address], [place], [phone], [facility] 08/15/2024 09:10:22
[2024-11-27 07:34] VITALS: BP 124/74; PULSE 63; O2SAT 98; BMI 22.1
--- NOTE | 2024-11-27 07:34 | A.OFFVIS_ITS ---
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 Patient states got a concussion few weeks ago and had a migraine worse then he ever had. take tegortal injection and if doesnt work needs iv injections. He also took Sumatriptan at onset of migraine but did nothing.Starts with blurred vision(starts at [facility]) then whole head pounds. Since concussion eye still hurt and get blurry with light sensitivity. Allergies No Known Allergies Allergy (Verified 11/27/24 07:36) Medication List - Last Reconciled 11/27/24 by Gem Gamez MD sumatriptan succinate 25 mg PO Q8H PRN HPI Comments Details: 29y/o Right handed male comes for evaluation of headaches. he comer shad noticeable headaches for past 10 years. The headaches starts with blurred vision , sees stars , bitemporal pressure followed by whole head pounding , with photophobia , phonophobia , nausea. He takes sumatriptan 25 mg( takes 1 dose and does not repeat ) which usually does not help and he goes to Urgent care - where he is treated with toradol. 2 weeks ago he went to [employer] and smacked his head on metal beam - briefly passed out. He played for 1 hr after that but when he went out for lunch he started having blurred vision . he went to urgent care- was told he had concussion , had X ray c spine - he had severe photophobia , blurred vision, head pressure for 1 week , had MRI brain. He still has some residual eye pressure , photophobia especially towards the end of the day.He denies dizziness , has some sleep issues. Prior to his concussion he had 1 headache/ migraine every 3 mths - lasted 6 hrs or until he has toradol. [facility] Medical History (Updated 11/27/24 @ 08:16 by Gem Gamez MD) Post-concussion headache Migraine with aura Lyme disease Physical Exam Vital Signs: Last Vital Signs Pulse 63 11/27/24 07:34 BP 124/74 11/27/24 07:34 Pulse Ox 98 11/27/24 07:34 Oxygen Delivery Method Room Air 11/27/24 07:34 BMI result Body Mass Index 22.1 Const General: cooperative, healthy appearing, comfortable and no acute distress Nutritional Appearance: average body habitus Orientation/consciousness: patient oriented x3 Eyes Pupils: Equal, round and reactive pupils present Neuro General: patient oriented x3, gait normal, tone normal, moves all extremities and no focal motor deficits Cranial nerves: Yes Facial sensation intact/muscles of mastication intact, Yes Equal, round and reactive pupils present, Yes Bilaterally intact EOM present, Yes Nystagmus not present, Yes Normal facial strength present, Yes Midline tongue present, Yes Symmetric palate elevation present and Yes Ability to bilaterally elevate shoulders present Cognition (Neuro): normal cognition Gait exam (Neuro): Normal gait present Motor exam (neuro): 5/5 motor strength present throughout and Normal motor muscle tone present throughout Deep tendon reflexes (DTR's): Right triceps reflex intensity grade: 2+, Left triceps reflex intensity grade: 2+, Rt Biceps (C5, C6): 2+, Left biceps reflex intensity grade: 2+, Right brachioradialis reflex intensity grade: 2+, Left brachioradialis reflex intensity grade: 2+, Right patellar reflex intensity grade: 2+ and Left patellar reflex intensity grade: 2+ Coordination: [id number] test normal Assessment & Plan Assessment & Plan (1) Migraine with aura: Code(s): G43.109 - Migraine with aura, not intractable, without status migrainosus Category: Medical Qualifiers: Status migrainosus presence: without status migrainosus Intractability: not intractable Qualified Code(s): G43.109 - Migraine with aura, not intractable, without status migrainosus (2) Post-concussion headache: Code(s): G44.309 - Post-traumatic headache, unspecified, not intractable Category: Medical Plan Discussed his diagnosis in detail . I will trial him on Amitriptyline 10mg qhs for post concussive symptoms and migraine prevention . Magnesium glycinate 00mg qhs and Riboflavin 400mg qam Sumatriptan 50mg at onset of migraine and repeat in 2hrs as needed maximum 4 tabs a day MRI brain and X ray neck report for review PT for neck tightness. Orders: Orders PT Evaluation and Treatment Today M54.2 - Cervicalgia Medications: New sumatriptan succinate take 1 tab at onset of headache; if no relief may repeat 1 tab after at least 2 hrs; max = 4 tabs/24 hr PO 14 tabs 6RF amitriptyline 10 mg PO BEDTIME 30 tabs 3RF Discontinued doxycycline hyclate Discontinued Reason: Patient no longer taking 100 mg PO BID 42 tabs 0RF Coding Level of Care Code New Pt Level 4 (02969) Diagnoses Migraine with aura and without status migrainosus, not intractable G43.109 Status migrainosus presence: without status migrainosus Intractability: not intractable Post-concussion headache G44.309
== END 2024-11-27 08:14 | disposition home or self-care (01) ==
LOC: HO.HSMS 07:22
PROVIDERS: PCP Student in an Organized Health Care Education/Training Program; Visit Provider Psychiatry & Neurology Neurology
DX: G43.109 Migraine with aura, not intractable, without status migrainosus (principal); G44.309 Post-traumatic headache, unspecified, not intractable
CPT/HCPCS: 99204

== ENCOUNTER 2025-01-28 08:38 | Outpatient (AMB) | payer OTHER, SELFPAY ==
--- NOTE | 2025-01-28 08:33 | MHC.OFFVIS ---
Intake Visit Reasons: 2mnth ok per MD Intake Note: Follow up Migraine with aura, not intractable, without status migrainosus Sales Correspondence Clerk Required: No Accompanied by: Self / Same As Patient Allergies No Known Allergies Allergy (Verified 01/28/25 08:34) HPI Comments Details: 29y/o Right handed male calls for follow up of of headaches.He did good with PT He had 1 headache since his last visit- he woke up in the middle of the night with migraine- treated with sumatriptan 75 mg He is on magnesium 100mg qhs and riboflavin 400mg qam - his sleep is better.He did not start amitriptyline Overall his symptoms are better. History form initial visit on 11/2024-he has had noticeable headaches for past 10 years. The headaches starts with blurred vision , sees stars , bitemporal pressure followed by whole head pounding , with photophobia , phonophobia , nausea. He takes sumatriptan 25 mg( takes 1 dose and does not repeat ) which usually does not help and he goes to Urgent care - where he is treated with toradol. 2 weeks ago he went to [employer] and smacked his head on metal beam - briefly passed out. He played for 1 hr after that but when he went out for lunch he started having blurred vision . he went to urgent care- was told he had concussion , had X ray c spine - he had severe photophobia , blurred vision, head pressure for 1 week , had MRI brain. He still has some residual eye pressure , photophobia especially towards the end of the day.He denies dizziness , has some sleep issues. Prior to his concussion he had 1 headache/ migraine every 3 mths - lasted 6 hrs or until he has toradol. [facility] Medical History Post-concussion headache Migraine with aura Lyme disease Physical Exam Const General: cooperative, healthy appearing, comfortable and no acute distress Nutritional Appearance: average body habitus Orientation/consciousness: patient oriented x3 Neuro General: patient oriented x3 Cognition (Neuro): normal cognition Telehealth Telehealth Telehealth Platform: [facility] Location of provider rendering services: practice address Location of patient: address on file Patient Identification confirmed using: Name, : Yes Telehealth method: video Patient verbally consented to treatment: Yes Patient verbally consented to billing insurance company: Yes Patient informed of any privacy concerns related to visit: Yes Minutes spent on Phone/Video with Pt.: 15 Assessment & Plan Assessment & Plan (1) Migraine with aura: Code(s): G43.109 - Migraine with aura, not intractable, without status migrainosus Category: Medical Qualifiers: Status migrainosus presence: without status migrainosus Intractability: not intractable Qualified Code(s): G43.109 - Migraine with aura, not intractable, without status migrainosus (2) Post-concussion headache: Code(s): G44.309 - Post-traumatic headache, unspecified, not intractable Category: Medical Plan Increase Magnesium glycinate 200mg qhs and Riboflavin 400mg qam Sumatriptan 50mg at onset of migraine and repeat in 2hrs as needed maximum 4 tabs a day continue neck exercises Coding Level of Care Code Tele Est Pt Level 3 (83332) Diagnoses Migraine with aura and without status migrainosus, not intractable G43.109 Status migrainosus presence: without status migrainosus Intractability: not intractable Post-concussion headache G44.309
--- OUTSIDE RECORDS SUMMARY | 2025-01-28 09:41 | XMS_ITS | Clinical Summary ---
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
== END 2025-01-28 09:35 | disposition home or self-care (01) ==
LOC: HO.HSMS 08:38
PROVIDERS: PCP Student in an Organized Health Care Education/Training Program; Visit Provider Psychiatry & Neurology Neurology
DX: G43.109 Migraine with aura, not intractable, without status migrainosus (principal); G44.309 Post-traumatic headache, unspecified, not intractable
CPT/HCPCS: 99213